=== PATIENT | male | born 1975 | race Caucasian/White ===

== ENCOUNTER → 2024-08-25 18:00 | Outpatient (REF) | payer BC, SELFPAY | LOC: RAD 18:00 | PROVIDERS: ATTENDING PHYSICIAN Student in an Organized Health Care Education/Training Program; FAMILY PHYSICIAN Internal Medicine | DX: K58.2 Mixed irritable bowel syndrome (principal) | CPT/HCPCS: 74019 ==

== ENCOUNTER 2024-09-08 06:25 | Day surgery (SDC) | payer BC, SELFPAY | END 2024-09-08 10:12 | disposition home or self-care (01) | LOC: GI 06:25 | PROVIDERS: ATTENDING PHYSICIAN Student in an Organized Health Care Education/Training Program | DX: R12 Heartburn (principal); K31.7 Polyp of stomach and duodenum; K29.50 Unspecified chronic gastritis without bleeding; K31.9 Disease of stomach and duodenum, unspecified | CPT/HCPCS: 43251; 43239; 88305; 88342 ==

== ENCOUNTER 2025-03-13 06:37 | Day surgery (SDC) | payer BC, SELFPAY | END 2025-03-13 15:23 | disposition home or self-care (01) | LOC: GI 06:37 | PROVIDERS: ATTENDING PHYSICIAN Student in an Organized Health Care Education/Training Program | DX: K31.7 Polyp of stomach and duodenum (principal); D12.3 Benign neoplasm of transverse colon; K63.5 Polyp of colon; K57.30 Diverticulosis of large intestine without perforation or abscess without bleeding; K56.2 Volvulus; K64.8 Other hemorrhoids; Z86.0101 Personal history of adenomatous and serrated colon polyps; Z80.0 Family history of malignant neoplasm of digestive organs; K62.5 Hemorrhage of anus and rectum; Z83.710 Family history of adenomatous and serrated polyps | CPT/HCPCS: 43251; 45380; 43239; 88305 ==